=== PATIENT | female | born 1955 | race Caucasian/White ===

== ENCOUNTER 2016-09-29 20:17 | Emergency (ER) | payer SELFPAY ==
[~2016-09-29] VITALS: Ht 170.2 cm; Wt 50.0 kg
[2016-09-29 20:19] VITALS: BP 143/63; PULSE 80; RESP 16; TEMP 97.9; O2SAT 96
--- NOTE | 2016-09-29 21:51 | PD ---
Physical Exam Date Seen by Provider: Sep 29, 2016 Time Seen by Provider: 21:49 Narrative 61 y/o female here with complaints of back pain and large bowel movements today. No Injury. Patient has Hx. Back pain. Vital signs reviewed. Patient stable. Awaiting Bed placement. Data Data Last Documented VS Vital Signs Date Time Temp Pulse Resp B/P Pulse Ox O2 Delivery O2 Flow Rate FiO2 09/29/16 20:19 97.9 80 16 143/63 96 Room Air [facility] Medical Record Reviewed: Yes Supervised Visit with ALAN: Yes Condition: Stable Mychal Umanzor Sep 29, 2016 21:51
[2016-10-01] MEDS ORDERED: ASPI81CH CHEW (04:30)
[2016-10-01] MEDS ORDERED: ZITHTAB PO (06:22)
[2016-10-01] MEDS ORDERED: ACET80CH (18:44)
== END 2016-09-29 23:35 | disposition left against medical advice (07) ==
LOC: NED 20:17
DX: M54.9 Dorsalgia, unspecified (principal)
CPT/HCPCS: 99281

== ENCOUNTER 2017-08-13 14:18 | Emergency (ER) | payer SELFPAY | END 2017-08-13 14:40 | disposition left against medical advice (07) | LOC: NETRI 14:18 | DX: M79.673 Pain in unspecified foot (principal); Z53.21 Procedure and treatment not carried out due to patient leaving prior to being seen by health care provider | CPT/HCPCS: 99281 ==